=== PATIENT | female | born 2000 | race Caucasian/White ===

== ENCOUNTER 2020-01-11 23:19 | Emergency (ER) | payer SELFPAY ==
--- NOTE | 2020-01-12 00:42 | EDM.PDOC ---
ED HPI GENERAL MEDICAL PROBLEM - General Chief Complaint: Abdominal Pain Stated Complaint: ABD PAIN Time Seen by Provider: 01/12/20 00:35 Source of Information: Reports: Patient, Family, RN Notes Reviewed History Limitations: Reports: No Limitations - History of Present Illness INITIAL COMMENTS - FREE TEXT/NARRATIVE: 19-year-old female presents emergency department with a complaint of abdominal pain, she states she had pain for pretty much today it is positional it does come and go no history abdominal surgery she had one episode of emesis yesterday but is not nauseated now does admit to constipation Right Lower Abdomen Pain Score (Numeric/FACES): 3 - Related Data Allergies Allergy/AdvReac Type Severity Reaction Status Date / Time No Known Allergies Allergy Verified 01/11/20 23:40 Home Meds: Home Meds Multivitamin [Multivitamins] 1 cap PO DAILY 01/11/20 [History] Past Medical History HEENT History: Reports: Impaired Vision [facility] History: Reports: , Spontaneous Psychiatric History: Reports: Anxiety, Depression - Past Surgical History HEENT Surgical History: Reports: Tonsillectomy Other Female Surgeries/Procedures: groin lymph nodes biopsy Social & Family History - Family History Family Medical History: Noncontributory - Tobacco Use Smoking Status *Q: Never Smoker - Caffeine Use Caffeine Use: Reports: Tea Caffeine Use Comment: occasional tea - Recreational Drug Use Recreational Drug Use: Yes Drug Use in Last 12 Months: No Recreational Drug Type: Reports: Marijuana/Hashish ED ROS GENERAL - Review of Systems Review Of Systems: See Below Constitutional: Reports: No Symptoms Respiratory: Reports: No Symptoms Cardiovascular: Reports: No Symptoms GI/Abdominal: Reports: Abdominal Pain, Constipation, Vomiting ED EXAM, GI/ABD - Physical Exam Exam: See Below Exam Limited By: No Limitations General Appearance: Alert, WD/WN, No Apparent Distress Respiratory/Chest: No Respiratory Distress, Lungs Clear, Normal Breath Sounds, No Accessory Muscle Use, Chest Non-Tender Cardiovascular: Regular Rate, Rhythm, No Murmur GI/Abdominal Exam: Soft, Non-Tender Course - Vital Signs Last Recorded V/S: Last Vital Signs Temp 98 F 01/11/20 23:40 Pulse 108 H 01/11/20 23:40 Resp 16 01/11/20 23:40 BP 139/87 01/11/20 23:40 Pulse Ox 98 01/11/20 23:40 - Orders/Labs/Meds Orders: Active Orders 24 hr Category Date Time Status Abdomen 1V Upright [CR] Stat Exams 01/12/20 00:39 Taken Labs: Laboratory Tests 01/12/20 01/12/20 Range/Units 00:41 00:41 Urine Color Yellow (YELLOW) Urine Appearance Clear (CLEAR) Urine pH 7.0 (5.0-8.0) Ur Specific Morrison 1.010 (1.008-1.030) Urine Protein Negative (NEGATIVE) mg/dL Urine Glucose (UA) Negative (NEGATIVE) mg/dL Urine Ketones Negative (NEGATIVE) mg/dL Urine Occult Blood Negative (NEGATIVE) Urine Nitrite Negative (NEGATIVE) Urine Bilirubin Negative (NEGATIVE) Urine Urobilinogen 0.2 (0.2-1.0) EU/dL Ur Leukocyte Esterase Negative (NEGATIVE) Urine RBC Not seen (0-5) Urine WBC Not seen (0-5) Ur Epithelial Cells Few Amorphous Sediment Not seen Urine Bacteria Not seen Urine Mucus Not seen Urine HCG, Qual Negative Departure - Departure Time of Disposition: 01:30 Disposition: Home, Self-Care 01 Condition: Fair Clinical Impression: Functional constipation - Discharge Information Instructions: Constipation, Adult Referrals: PCP,None [Primary Care Provider] - Forms: ED Department Discharge Additional Instructions: Try the MiraLAX colonoscopy prep, please followup with your primary care provider in 3-5 days if not better, please call return to the emergency department with worsening of symptoms. Sepsis Event Note - Evaluation Sepsis Screening Result: No Definite Risk - Focused Exam Vital Signs: Vital Signs Temp Pulse Resp BP Pulse Ox 01/11/20 23:40 98 F 108 H 16 139/87 98 01/11/20 23:37 98 F 108 H 16 139/87 98 Date Exam was Performed: 01/12/20 Time Exam was Performed: 01:29 - My Orders Last 24 Hours: My Active Orders 01/12/20 00:39 Abdomen 1V Upright [CR] Stat - Assessment/Plan Last 24 Hours: My Active Orders 01/12/20 00:39 Abdomen 1V Upright [CR] Stat Plan: Assessment Acuity = acute Site and laterality = functional constipation Etiology = slow transit time Manifestations = intermittent abdominal pain Location of injury = Home Lab values = plain film does show large amount of stool and gas right lower quadrant Plan Try the MiraLAX colonoscopy prep follow-up primary care 3 to 5 days if not better This note was dictated using dragon voice recognition software please call with any questions on syntax or grammar.
--- NOTE | 2020-01-12 09:56 | CR ---
Abdomen 1V Upright CLINICAL HISTORY: Pain FINDINGS: No free air is identified. Small intestinal gas pattern is nonacute. There is some fecal retention in the rectosigmoid colon. There is a small calcification in the right lower quadrant which may be associated with the mid to lower pole of the right kidney. Patient has a mild dextroscoliosis. There is a transitional sacral segment. Impression: Nonacute intestinal gas pattern Punctate calcification in the right lower quadrant may be within the right kidney
== END 2020-01-12 01:39 | disposition home or self-care (01) ==
LOC: JP.ED 23:19
DX: K59.04 Chronic idiopathic constipation (principal)
CPT/HCPCS: 74018; 74018-26; 81001; 81025; 99282; 99284-25